=== PATIENT | male | born 1945 | race Caucasian/White ===

== ENCOUNTER → 2023-07-02 | Outpatient (CLI) | payer MEDICARE, MEDICAID ==
[2023-07-02 09:27] LABS: ANION GAP 11.6; CALCIUM 8.8 mg/dL (8.4-10.5); CARBON DIOXIDE 25.1 mmol/L (20.0-32); CREATININE SERUM 1.86 mg/dL (0.59-1.40); EST GFR, NON-AA 35.5 (>/=60); POTASSIUM 3.7 mmol/L (3.6-5.2)
== END | disposition home or self-care (01) ==
LOC: NPLAB 08:58
PROVIDERS: ATTEND Internal Medicine
DX: N18.6 End stage renal disease (principal); N17.9 Acute kidney failure, unspecified
CPT/HCPCS: 36415; 80048